=== PATIENT | female | born 1960 | race Caucasian/White ===

== ENCOUNTER → 2016-09-13 | Outpatient (CLI) | payer BC | LOC: MW.CHOBGYN 10:43 | PROVIDERS: ATTEND Nurse Practitioner Women's Health | DX: E89.0 Postprocedural hypothyroidism (principal) | CPT/HCPCS: 36415; 84443 ==

== ENCOUNTER → 2016-10-16 | Outpatient (CLI) | payer BC ==
[2016-10-16 17:29] LABS: CHLORIDE,CL 107 mmol/L (98-110); SODIUM,NA 143 mmol/L (136-146)
== END | disposition home or self-care (01) ==
LOC: MW.CHRC 16:45
PROVIDERS: ATTEND Family Medicine
DX: R19.7 Diarrhea, unspecified (principal)
CPT/HCPCS: 36415; 80053; 85025; 85652; 86140; 86308; 86663; 86664; 86665; 87804

== ENCOUNTER 2019-07-07 10:52 | Day surgery (SDC) | payer BC ==
[~2019-07-07 10:52] MED LIST: Lactated Ringers 1,000 ML IV SCH; Sodium Chloride 0.9% 10 ML SDV IV PRN; Sodium Chloride 0.9% 10 ML Syringe FLUSH PRN; Sodium Chloride 0.9% 2.5 ML Syringe FLUSH PRN
--- NOTE | 2019-07-07 11:43 | PCM.PREANE ---
Preanesthetic Assessment - Anesthesia/Transfusion/Family Hx Anesthesia History: Prior Anesthesia Reaction Family History of Anesthesia Reaction: No Transfusion History: Prior Transfusion Without Reaction - Review of Systems General: No Symptoms Pulmonary: No Symptoms Cardiovascular: No Symptoms Gastrointestinal: No Symptoms Neurological: No Symptoms Other: Reports: None - Physical Assessment NPO Status Date: 07/07/19 NPO Status Time: 09:00 Vital Signs: Last Vital Signs Temp 98.2 F 07/07/19 11:00 Pulse 77 07/07/19 11:00 Resp 18 07/07/19 11:00 BP 117/69 07/07/19 11:00 Pulse Ox 96 07/07/19 11:00 Height: 5 ft 6 in Weight: 89.811 kg ASA Class: 2 Mental Status: Alert & Oriented x3 Airway Class: Mallampati = 2 Dentition: Reports: Normal Dentition ROM/Head Extension: Full Lungs: Clear to Auscultation, Normal Respiratory Effort Cardiovascular: Regular Rate, Regular Rhythm - Allergies Allergies/Adverse Reactions: Allergies Allergy/AdvReac Type Severity Reaction Status Date / Time amoxicillin trihydrate Allergy Nausea and Verified 06/30/19 14:06 [From Augmentin] Vomiting bupropion HCl Allergy Other Verified 06/30/19 14:06 [From Wellbutrin] doxycycline Allergy Nausea and Verified 06/30/19 14:06 Vomiting metformin Allergy Diarrhea Verified 06/30/19 14:06 morphine Allergy Syncope Verified 06/30/19 14:25 potassium clavulanate Allergy Nausea and Verified 06/30/19 14:06 [From Augmentin] Vomiting - Blood Blood Available: No - Anesthesia Plan Pre-Op Medication Ordered: None - Acknowledgements Anesthesia Type Planned: General Anesthesia Pt an Appropriate Candidate for the Planned Anesthesia: Yes Alternatives and Risks of Anesthesia Discussed w Pt/Guardian: Yes Pt/Guardian Understands and Agrees with Anesthesia Plan: Yes Additional Comments: anes prob list: anx/dep, fibromyalgia, gerd, hx MRSA, PLAN: tiva PreAnesthesia Questionnaire HEENT History: Reports: Other (See Below) Other HEENT History: wears glasses, has upper left permanent dental bridge Gastrointestinal History: Reports: Other (See Below) Other Gastrointestinal History: occasional heartburn- takes Gaviscon 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: Musculoskeletal History: Reports: Fibromyalgia, Gout, Neck Pain, Chronic Other Musculoskeletal History: currently has a left frozen shoulder (has been doing Physical Therapy) Neurological History: Reports: Other (See Below) Other Neuro History: cervical degenerative disc disease Psychiatric History: Reports: Anxiety Endocrine/Metabolic History: Reports: Hypothyroidism, Obesity/BMI 30+, Other ( See Below) Other Endocrine/Metabolic History: hx of Radioactive Thyroid ablation, pre- diabetic- last A1C was 6.1 Immunologic History: Reports: Other (See Below) Other Immunologic History: hx of MRSA Dermatologic History: Reports: Other (See Below) Other Dermatologic History: frequent cold sores - Past Surgical History Head Surgeries/Procedures: Reports: None HEENT Surgical History: Reports: Naso-Sinus Surgery Other HEENT Surgeries/Procedures: Septoplasty and FESS GI Surgical History: Reports: Appendectomy, Cholecystectomy, Colonoscopy Female Surgical History: Reports: Breast Reduction, Section, Hysterectomy, Oophorectomy Musculoskeletal Surgical History: Reports: Other (See Below) Other Musculoskeletal Surgeries/Procedures:: right bunionectomy (has screw) - SUBSTANCE USE Recreational Drug Use History: No - HOME MEDS Home Medications: Home Meds ALPRAZolam [Xanax XR] 0.5 mg PO TID PRN 08/19/14 [History] Levothyroxine [Sythroid] 100 mcg PO DAILY 08/19/14 [History] Solifenacin [Vesicare] 5 mg PO DAILY PRN 08/19/14 [History] Citalopram Hydrobromide [Celexa] 20 mg PO DAILY 06/30/19 [History] Estradiol [Tiki] 0.0375 mg TD ASDIRECTED 06/30/19 [History] Levothyroxine Sodium [Levoxyl] 50 mcg PO ASDIRECTED 06/30/19 [History] Progesterone, Micronized [Progesterone] 100 mg PO DAILY 06/30/19 [History] valACYclovir HCl [Valtrex] 500 mg PO BID PRN 06/30/19 [History] - CURRENT (IN HOUSE) MEDS Current Meds: Current Medications Lactated Ringer's (Ringers, Lactated) 1,000 mls @ 125 mls/hr IV ASDIRECTED VIVIANE Last Admin: 07/07/19 11:15 Dose: 125 mls/hr Sodium Chloride (Saline Flush) 10 ml FLUSH ASDIRECTED PRN PRN Reason: Keep Vein Open Sodium Chloride (Saline Flush) 2.5 ml FLUSH ASDIRECTED PRN PRN Reason: Keep Vein Open Sodium Chloride (Saline Flush) 10 ml FLUSH ASDIRECTED PRN PRN Reason: Keep Vein Open Sodium Chloride (Saline Flush) 2.5 ml FLUSH ASDIRECTED PRN PRN Reason: Keep Vein Open Sodium Chloride (Normal Saline) 10 ml IV ASDIRECTED PRN PRN Reason: IV Use
[2019-07-07] MEDS ORDERED: Midazolam 1 MG/ML 2 ML SDV ONE (13:59)
[2019-07-07] MEDS ORDERED: Ondansetron 4 MG/2 ML SDV ONE (13:59)
[2019-07-07] MEDS ORDERED: Propofol 200 MG/20 ML SDV ONE ×2 (13:59→14:36)
[2019-07-07] MEDS ORDERED: fentaNYL 100 MCG/2 ML SDV ONE (13:59)
--- NOTE | 2019-07-07 15:02 | PCM.OPNOTE ---
- General Post-Op/Procedure Note Date of Surgery/Procedure: 07/07/19 Operative Procedure(s): Screening colonoscopy Findings: Normal colonoscopy however patient had a very tortuous sigmoid colon and very redundant transverse colon Pre Op Diagnosis: Screening colonoscopy Post-Op Diagnosis: same Anesthesia Technique: MAC Primary Surgeon: Sravanthi Mosher Condition: Good
--- NOTE | 2019-07-07 15:10 | PCM.POSTAN ---
POST ANESTHESIA ASSESSMENT - MENTAL STATUS Mental Status: Alert, Oriented - VITAL SIGNS Vital Signs: Last Vital Signs Temp 98.2 F 07/07/19 11:00 Pulse 63 07/07/19 15:05 Resp 11 L 07/07/19 15:05 BP 104/62 07/07/19 15:05 Pulse Ox 97 07/07/19 15:05 - RESPIRATORY Respiratory Status: Respiratory Rate WNL, Airway Patent, O2 Saturation Stable - CARDIOVASCULAR CV Status: Pulse Rate WNL, Blood Pressure Stable - GASTROINTESTINAL GI Status: No Symptoms - POST OP HYDRATION Hydration Status: Adequate & Stable
--- NOTE | 2019-07-07 15:11 | PCM48HPAN ---
Post Anesthesia Note - EVALUATION WITHIN 48HRS OF ANESTHETIC Vital Signs in Normal Range: Yes Patient Participated in Evaluation: Yes Respiratory Function Stable: Yes Airway Patent: Yes Cardiovascular Function Stable: Yes Hydration Status Stable: Yes Pain Control Satisfactory: Yes Nausea and Vomiting Control Satisfactory: Yes Mental Status Recovered: Yes Vital Signs: Last Vital Signs Temp 98.2 F 07/07/19 11:00 Pulse 63 07/07/19 15:05 Resp 11 L 07/07/19 15:05 BP 104/62 07/07/19 15:05 Pulse Ox 97 07/07/19 15:05
[2019-07-07 15:40] VITALS: BP 107/57; PULSE 68
--- NOTE | 2019-07-08 19:00 | OR ---
SURGEON: SRAVANTHI MOSHER MD DATE OF PROCEDURE: 07/07/2019 PREOPERATIVE DIAGNOSIS: Screening colonoscopy. POSTOPERATIVE DIAGNOSIS: Screening colonoscopy. PROCEDURE PERFORMED: Screening colonoscopy. PRIMARY SURGEON: Sravanthi Mosher MD. ANESTHESIA: MAC. INSTRUMENT USED: Olympus colonoscope. EXTENT OF EXAM: To the cecum. PREPARATION: Good. LIMITATIONS: None. INDICATIONS FOR EXAMINATION: The patient is a 58-year-old female who presents for screening colonoscopy. The patient and I discussed the procedure; expected perioperative course; and risks including bleeding, infection, or damage to surrounding structures including perforation. The patient verbalized understanding and wishes to proceed. PROCEDURE IN DETAIL: The patient was brought into the endoscopy suite and placed in the left lateral decubitus position. A time-out was completed verifying the patient's name, age, date of , allergies, and procedure to be performed. Monitored anesthesia care was induced and continuous oxygen was provided via nasal cannula throughout the procedure. After adequate sedation was achieved, a digital rectal exam was performed. This exam was within normal limits. A well-lubricated colonoscope was inserted in the rectum and advanced under direct visualization to the level of the cecum. The cecum was identified by both visual and anatomic landmarks. A photograph was taken of the cecal cap; however, I was unable to retroflex the scope within the cecum due to looping of the scope more proximally. The scope was then fully withdrawn while examining the color, texture, anatomy, and integrity of the mucosa from the cecum to the anal canal. The findings were consistent with normal colonic mucosa. The scope was then brought into the rectum and retroflexed to allow visualization of the anal canal opening. This appeared normal and a photograph was taken. The scope was then straightened out and fully withdrawn. The cecum to anus time was 6 minutes. The patient tolerated the procedure well and was transferred to the PACU in stable condition. ENDOSCOPIC DIAGNOSIS: Normal colonoscopy. RECOMMENDATIONS: Follow up in clinic in 10 years. TK / CORTES /[id number]
== END 2019-07-07 15:38 | disposition home or self-care (01) ==
LOC: MW.SDS 10:52
PROVIDERS: ATTEND Surgery
DX: Z12.11 Encounter for screening for malignant neoplasm of colon (principal); K21.9 Gastro-esophageal reflux disease without esophagitis; E89.0 Postprocedural hypothyroidism; M50.30 Other cervical disc degeneration, unspecified cervical region; F32.9 Major depressive disorder, single episode, unspecified; F41.9 Anxiety disorder, unspecified; E66.9 Obesity, unspecified; M47.812 Spondylosis without myelopathy or radiculopathy, cervical region; M19.012 Primary osteoarthritis, left shoulder; Z88.8 Allergy status to other drugs, medicaments and biological substances; Z88.0 Allergy status to penicillin; Z88.5 Allergy status to narcotic agent; Z88.1 Allergy status to other antibiotic agents; Z90.49 Acquired absence of other specified parts of digestive tract; Z68.33 Body mass index [BMI] 33.0-33.9, adult
CPT/HCPCS: 45378; J2250; J2405; J2704; J3010; J7120

== ENCOUNTER 2020-10-06 09:37 | Day surgery (SDC) | payer BC ==
[~2020-10-06 09:37] MED LIST changes: +Lidocaine 2% 5 ML SDV ONE; +Midazolam 1 MG/ML 2 ML SDV ONE; +Propofol 200 MG/20 ML SDV ONE; +fentaNYL 100 MCG/2 ML SDV ONE
--- NOTE | 2020-10-06 11:32 | PCM.PREANE ---
Preanesthetic Assessment - Anesthesia/Transfusion/Family Hx Anesthesia History: Prior Anesthesia Reaction Type of Anesthesia Reaction: Other (see below) Family History of Anesthesia Reaction: No Transfusion History: Prior Transfusion Without Reaction - Review of Systems General: No Symptoms Pulmonary: No Symptoms Cardiovascular: No Symptoms Gastrointestinal: No Symptoms Neurological: No Symptoms Other: Reports: None - Physical Assessment NPO Status Date: 10/06/20 NPO Status Time: 00:05 Vital Signs: Last Vital Signs Temp 98.4 F 10/06/20 10:58 Pulse 67 10/06/20 10:58 Resp 16 10/06/20 10:58 BP 154/74 H 10/06/20 10:58 Pulse Ox 97 10/06/20 10:58 Height: 5 ft 5 in Weight: 199 lb ASA Class: 2 Mental Status: Alert & Oriented x3 Airway Class: Mallampati = 2 Dentition: Reports: Normal Dentition ROM/Head Extension: Full Lungs: Clear to Auscultation, Normal Respiratory Effort Cardiovascular: Regular Rate, Regular Rhythm - Allergies Allergies/Adverse Reactions: Allergies Allergy/AdvReac Type Severity Reaction Status Date / Time amoxicillin trihydrate Allergy Nausea and Verified 10/06/20 11:01 [From Augmentin] Vomiting bupropion HCl Allergy panic Verified 10/06/20 11:01 [From Wellbutrin] attack cefuroxime [From Ceftin] Allergy Stomach Verified 10/06/20 11:01 Upset doxycycline Allergy Nausea and Verified 10/06/20 11:01 Vomiting metformin Allergy Diarrhea Verified 10/06/20 11:01 morphine Allergy Syncope Verified 10/06/20 11:01 potassium clavulanate Allergy Nausea and Verified 10/06/20 11:01 [From Augmentin] Vomiting - Anesthesia Plan Pre-Op Medication Ordered: None - Acknowledgements Anesthesia Type Planned: General Anesthesia Pt an Appropriate Candidate for the Planned Anesthesia: Yes Alternatives and Risks of Anesthesia Discussed w Pt/Guardian: Yes Pt/Guardian Understands and Agrees with Anesthesia Plan: Yes Additional Comments: npo aftr mn hayfever anxiety depression narendra resolved palpitations no mi, cp, chf interstitial cystitis ibs fibromyalgia tob none etoh none par no questions s/p thyroid ablation on rx PreAnesthesia Questionnaire HEENT History: Reports: Other (See Below) Other HEENT History: wears glasses, has upper left permanent dental bridge Cardiovascular History: Reports: None Respiratory History: Reports: None Gastrointestinal History: Reports: Other (See Below) Other Gastrointestinal History: occasional heartburn- takes Gaviscon Genitourinary History: Reports: Other (See Below) Other Genitourinary History: UTI's in the past 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: Musculoskeletal History: Reports: Fibromyalgia, Gout, Neck Pain, Chronic Other Musculoskeletal History: currently has a left frozen shoulder (has been doing Physical Therapy) Neurological History: Reports: Other (See Below) Other Neuro History: cervical degenerative disc disease Psychiatric History: Reports: Anxiety Endocrine/Metabolic History: Reports: Hypothyroidism, Obesity/BMI 30+, Other (See Below) Other Endocrine/Metabolic History: hx of Radioactive Thyroid ablation, pre-diabetic- last A1C was 6.1 Hematologic History: Reports: Blood Transfusion(s) Immunologic History: Reports: Other (See Below) Other Immunologic History: hx of MRSA Oncologic (Cancer) History: Reports: None Dermatologic History: Reports: Other (See Below) Other Dermatologic History: frequent cold sores - Past Surgical History Head Surgeries/Procedures: Reports: None HEENT Surgical History: Reports: Naso-Sinus Surgery Other HEENT Surgeries/Procedures: Septoplasty and FESS Cardiovascular Surgical History: Reports: None Respiratory Surgical History: Reports: None GI Surgical History: Reports: Appendectomy, Cholecystectomy, Colonoscopy Female Surgical History: Reports: Breast Reduction, Section, Hysterectomy, Oophorectomy Endocrine Surgical History: Reports: None Neurological Surgical History: Reports: None Musculoskeletal Surgical History: Reports: Other (See Below) Other Musculoskeletal Surgeries/Procedures:: right bunionectomy (has screw) Oncologic Surgical History: Reports: None Dermatological Surgical History: Reports: None - SUBSTANCE USE Tobacco Use Status *Q: Never Tobacco User - HOME MEDS Home Medications: Home Meds ALPRAZolam [Xanax XR] 0.5 mg PO TID PRN 08/19/14 [History] Levothyroxine [Synthroid] 100 mcg PO ASDIRECTED 08/19/14 [History] Solifenacin [Vesicare] 5 mg PO DAILY PRN 08/19/14 [History] Citalopram Hydrobromide [Celexa] 20 mg PO DAILY 06/30/19 [History] Levothyroxine Sodium [Levoxyl] 50 mcg PO ASDIRECTED 06/30/19 [History] Progesterone, Micronized [Progesterone] 100 mg PO DAILY 06/30/19 [History] estradioL [Tiki] 0.0375 mg TD ASDIRECTED 06/30/19 [History] Acetaminophen [Tylenol Extra Strength] 1 tab PO ASDIRECTED PRN 10/04/20 [History] - CURRENT (IN HOUSE) MEDS Current Meds: Current Medications Lactated Ringer's (Ringers, Lactated) 1,000 mls @ 125 mls/hr IV ASDIRECTED VIVIANE Last Admin: 10/06/20 10:58 Dose: 125 mls/hr Documented by: Sodium Chloride (Sodium Chloride 0.9% 10 Ml Syringe) 10 ml FLUSH ASDIRECTED PRN PRN Reason: Keep Vein Open Sodium Chloride (Sodium Chloride 0.9% 2.5 Ml Syringe) 2.5 ml FLUSH ASDIRECTED PRN PRN Reason: Keep Vein Open Sodium Chloride (Sodium Chloride 0.9% 10 Ml Syringe) 10 ml FLUSH ASDIRECTED PRN PRN Reason: Keep Vein Open Sodium Chloride (Sodium Chloride 0.9% 2.5 Ml Syringe) 2.5 ml FLUSH ASDIRECTED PRN PRN Reason: Keep Vein Open Sodium Chloride (Sodium Chloride 0.9% 10 Ml Sdv) 10 ml IV ASDIRECTED PRN PRN Reason: IV Use Discontinued Medications Fentanyl (Fentanyl 100 Mcg/2 Ml Sdv) Confirm Administered Dose 100 mcg .ROUTE .STK-MED ONE Stop: 10/06/20 09:12 Lidocaine (Lidocaine 2% 5 Ml Sdv) Confirm Administered Dose 5 ml .ROUTE .STK-MED ONE Stop: 10/06/20 09:13 Midazolam HCl (Midazolam 1 Mg/Ml 2 Ml Sdv) Confirm Administered Dose 2 mg .ROUTE .STK-MED ONE Stop: 10/06/20 09:12 Propofol (Propofol 200 Mg/20 Ml Sdv) Confirm Administered Dose 200 mg .ROUTE .STK-MED ONE Stop: 10/06/20 09:12
--- NOTE | 2020-10-06 13:10 | PCM.OPNOTE ---
- General Post-Op/Procedure Note Date of Surgery/Procedure: 10/06/20 Operative Procedure(s): Diagnostic EGD Findings: Normal appearing EGD Pre Op Diagnosis: LUQ abdominal pain Post-Op Diagnosis: same Anesthesia Technique: MAC Primary Surgeon: Sravanthi Mosher Condition: Good
--- NOTE | 2020-10-06 14:33 | PCM.POSTAN ---
POST ANESTHESIA ASSESSMENT - MENTAL STATUS Mental Status: Alert, Oriented - VITAL SIGNS Vital Signs: Last Vital Signs Temp 98.4 F 10/06/20 10:58 Pulse 71 10/06/20 13:18 Resp 13 10/06/20 13:18 BP 123/67 10/06/20 13:18 Pulse Ox 96 10/06/20 13:18 - RESPIRATORY Respiratory Status: Respiratory Rate WNL, Airway Patent, O2 Saturation Stable - CARDIOVASCULAR CV Status: Pulse Rate WNL, Blood Pressure Stable - GASTROINTESTINAL GI Status: No Symptoms - POST OP HYDRATION Hydration Status: Adequate & Stable
--- NOTE | 2020-10-06 14:34 | PCM48HPAN ---
Post Anesthesia Note - EVALUATION WITHIN 48HRS OF ANESTHETIC Vital Signs in Normal Range: Yes Patient Participated in Evaluation: Yes Respiratory Function Stable: Yes Airway Patent: Yes Cardiovascular Function Stable: Yes Hydration Status Stable: Yes Pain Control Satisfactory: Yes Nausea and Vomiting Control Satisfactory: Yes Mental Status Recovered: Yes Vital Signs: Last Vital Signs Temp 98.4 F 10/06/20 10:58 Pulse 71 10/06/20 13:18 Resp 13 10/06/20 13:18 BP 123/67 10/06/20 13:18 Pulse Ox 96 10/06/20 13:18
[2020-10-06 15:14] VITALS: BP 114/61; PULSE 61
--- NOTE | 2020-10-06 20:08 | OR ---
SURGEON: SRAVANTHI MOSHER MD DATE OF PROCEDURE: 10/06/2020 PREOPERATIVE DIAGNOSIS: Left upper quadrant pain. POSTOPERATIVE DIAGNOSIS: Left upper quadrant pain. PROCEDURE PERFORMED: Diagnostic esophagogastroduodenoscopy with biopsy. PRIMARY SURGEON: Sravanthi Mosher MD ANESTHESIA: MAC. INSTRUMENT USED: Olympus endoscope. EXTENT OF EXAM: To the 2nd portion of duodenum. PREPARATION: Good. LIMITATIONS: None. INDICATIONS FOR EXAMINATION: The patient is a 59-year-old female who presents with intermittent left upper quadrant pain. After discussing her symptoms and performing physical exam, the decision was made to proceed with diagnostic EGD. I explained the procedure, expected perioperative course, and the risks. The patient verbalized understanding and wishes to proceed. PROCEDURE IN DETAIL: The patient was brought into the endoscopy suite and placed in a beach chair position. A time-out was completed verifying the patient's name, age, date of , allergies, and procedure to be performed. A bite block was placed in the patient's mouth. Monitored anesthesia care was induced and continuous oxygen was provided via nasal cannula throughout the procedure. After adequate sedation was achieved, a well-lubricated endoscope was placed in the patient's mouth and advanced under direct visualization to the 2nd portion of duodenum. This appeared normal and a photograph was taken. The scope was then fully withdrawn while examining the color, texture, anatomy, and integrity of the mucosa of the upper GI tract. The duodenum appeared normal. The scope was brought into the stomach and photographs were taken of the pylorus and GE junction. Both appeared normal. Biopsies were taken of the gastric antrum, body, and fundus and sent for histologic review and H pylori testing, but I saw no evidence of gross inflammation or ulceration. The scope was then brought into the distal esophagus. A photograph was taken of the Z-line, which appeared normal. A biopsy was taken of the distal esophageal mucosa 1 cm above the Z- line and sent to Pathology. There was no evidence of gross esophagitis or ulceration. The remainder of the esophagus appeared normal. The scope was removed and the procedure was terminated. The patient was taken to PACU in stable condition. ENDOSCOPIC DIAGNOSIS: Left upper quadrant pain. RECOMMENDATIONS: Follow up in clinic in 2 weeks to discuss imaging findings as well as our biopsy results. TK / CORTES /[id number]
== END 2020-10-06 13:54 | disposition home or self-care (01) ==
LOC: MW.SDS 09:37
PROVIDERS: ATTEND Surgery
DX: K29.50 Unspecified chronic gastritis without bleeding (principal); K20.90 Esophagitis, unspecified without bleeding; E03.9 Hypothyroidism, unspecified; E66.9 Obesity, unspecified; Z68.33 Body mass index [BMI] 33.0-33.9, adult; R73.03 Prediabetes; Z88.8 Allergy status to other drugs, medicaments and biological substances; Z88.6 Allergy status to analgesic agent; Z79.890 Hormone replacement therapy; Z79.899 Other long term (current) drug therapy; Z87.440 Personal history of urinary (tract) infections; Z87.39 Personal history of other diseases of the musculoskeletal system and connective tissue; Z98.890 Other specified postprocedural states
CPT/HCPCS: 43239; 88305; 88312; J2250; J2704; J3010; J7120; 00731

== ENCOUNTER 2024-02-21 16:23 | Emergency (ER) | payer MEDICARE, OTHER ==
[2024-02-21] MEDS ORDERED: Sodium Chloride 0.9% 10 ML Syringe FLUSH PRN (16:49)
[2024-02-21] MEDS ORDERED: Sodium Chloride 0.9% 2.5 ML Syringe FLUSH PRN (16:49)
[2024-02-21 17:45] LABS: INR 1.17 (0.86-1.11)
[2024-02-21] MEDS: Iopamidol 755 MG/ML 500 ML Multipack Bottle IVPUSH ONE (19:04)
[2024-02-21 20:05] VITALS: BP 125/87; PULSE 65
[2024-02-27 05:06] LABS: SMOOTH MUSC AB, IGG 96 Units (0-19)
== END 2024-02-21 20:04 | disposition home or self-care (01) ==
LOC: MW.ED 16:23
DX: K74.60 Unspecified cirrhosis of liver (principal); E03.9 Hypothyroidism, unspecified; E66.9 Obesity, unspecified; Z90.49 Acquired absence of other specified parts of digestive tract; Z90.710 Acquired absence of both cervix and uterus; Z79.890 Hormone replacement therapy; Z79.899 Other long term (current) drug therapy; Z88.0 Allergy status to penicillin; Z88.1 Allergy status to other antibiotic agents; Z88.5 Allergy status to narcotic agent; Z88.8 Allergy status to other drugs, medicaments and biological substances; Z75.8 Other problems related to medical facilities and other health care; Z68.30 Body mass index [BMI] 30.0-30.9, adult
CPT/HCPCS: 36415; 74177; 85610; 86015; 99284; Q9967

== ENCOUNTER 2024-04-23 13:59 | Emergency (ER) | payer MEDICARE, OTHER ==
[2024-04-23 14:44] LABS: BASOPHILS ABSOLUTE AUTO 0.04 K/uL (0.00-0.20); BASOPHILS PERCENT AUTO 0.5 % (0.0-1.0); EOSINOPHILS ABSOLUTE AUTO 0.42 K/uL (0.00-0.45); EOSINOPHILS PERCENT AUTO 5.1 % (0.0-6.0); HEMATOCRIT 41.5 % (37.0-47.0); HEMOGLOBIN 13.8 g/dL (12.0-16.0); IMMATURE GRAN ABSOLUTE AUTO 0.02 K/uL (0.00-0.05); IMMATURE GRAN PERCENT AUTO 0.2 % (0.0-0.4); LYMPHOCYTES ABSOLUTE AUTO 1.05 K/uL (1.00-4.80); LYMPHOCYTES PERCENT AUTO 12.7 % (24.0-44.0); MEAN CORPUSCULAR HEMOGLOBIN 31.1 pg (28.0-32.0); MEAN CORPUSCULAR HGB CONC 33.3 g/dL (32.0-36.0); MEAN CORPUSCULAR VOLUME 93.5 fL (83.0-99.0); MEAN PLATELET VOLUME 9.1 fL (9.4-12.3); MONOCYTES ABSOLUTE AUTO 0.69 K/uL (0.00-0.80); MONOCYTES PERCENT AUTO 8.3 % (0.0-8.0); NEUTROPHILS ABSOLUTE AUTO 6.08 K/uL (1.80-7.70); NEUTROPHILS PERCENT AUTO 73.2 % (41.0-71.0); PLATELET COUNT,PLT 180 K/uL (150-400); RED BLOOD CELL COUNT 4.44 M/uL (4.10-5.30)
[2024-04-23 15:14] LABS: A/G RATIO 0.9 (0.9-1.6); ALBUMIN 3.2 g/dL (3.4-5.0); BILIRUBIN TOTAL 0.5 mg/dL (0.2-1.0); CALCIUM 8.8 mg/dL (8.5-10.1); CARBON DIOXIDE,CO2 30.9 mmol/L (21.0-32.0); EST CRCL DRUG DOSING (CG) 50.47 mL/min; POTASSIUM,K 3.7 mmol/L (3.5-5.1); PROTEIN TOTAL,TP 6.6 g/dL (6.4-8.2)
[2024-04-23] MEDS: Alum Hydrox/Mag Hydrox/Simeth 15 ML, Lidocaine 2% 5 ML PO ONE (15:54)
[2024-04-24 13:15] VITALS: BP 126/72; PULSE 74
== END 2024-04-23 16:57 | disposition home or self-care (01) ==
LOC: MW.ED 13:59
DX: K21.9 Gastro-esophageal reflux disease without esophagitis (principal); R07.2 Precordial pain; E03.9 Hypothyroidism, unspecified; E66.9 Obesity, unspecified; Z79.899 Other long term (current) drug therapy; Z88.0 Allergy status to penicillin; Z88.5 Allergy status to narcotic agent; Z88.1 Allergy status to other antibiotic agents; Z88.8 Allergy status to other drugs, medicaments and biological substances; Z75.8 Other problems related to medical facilities and other health care; B17.9 Acute viral hepatitis, unspecified; R79.89 Other specified abnormal findings of blood chemistry
CPT/HCPCS: 36415; 71045; 80053; 80076; 82728; 84484; 85025; 93005; 99285; A9270; 93010; 99283

== ENCOUNTER 2024-04-28 22:00 | Emergency (ER) | payer MEDICARE, OTHER ==
[2024-04-28 23:30] LABS: BASOPHILS ABSOLUTE AUTO 0.06 K/uL (0.00-0.20); BASOPHILS PERCENT AUTO 0.3 % (0.0-1.0); EOSINOPHILS ABSOLUTE AUTO 0.03 K/uL (0.00-0.45); EOSINOPHILS PERCENT AUTO 0.2 % (0.0-6.0); HEMOGLOBIN 15.6 g/dL (12.0-16.0); IMMATURE GRAN ABSOLUTE AUTO 0.09 K/uL (0.00-0.05); IMMATURE GRAN PERCENT AUTO 0.5 % (0.0-0.4); LYMPHOCYTES ABSOLUTE AUTO 0.91 K/uL (1.00-4.80); LYMPHOCYTES PERCENT AUTO 5.2 % (24.0-44.0); MEAN CORPUSCULAR HEMOGLOBIN 30.9 pg (28.0-32.0); MEAN CORPUSCULAR HGB CONC 33.2 g/dL (32.0-36.0); MEAN CORPUSCULAR VOLUME 93.1 fL (83.0-99.0); MEAN PLATELET VOLUME 9.1 fL (9.4-12.3); MONOCYTES ABSOLUTE AUTO 0.78 K/uL (0.00-0.80); MONOCYTES PERCENT AUTO 4.4 % (0.0-8.0); NEUTROPHILS ABSOLUTE AUTO 15.69 K/uL (1.80-7.70); NEUTROPHILS PERCENT AUTO 89.4 % (41.0-71.0); PLATELET COUNT,PLT 234 K/uL (150-400); RED BLOOD CELL COUNT 5.05 M/uL (4.10-5.30); WHITE BLOOD CELL COUNT,WBC 17.56 K/uL (3.9-11.3)
[2024-04-28 23:55] LABS: A/G RATIO 1.1 (0.9-1.6); ALANINE AMINOTRANSFERASE,ALT 19 IU/L (14-63); ALKALINE PHOSPHATASE 136 U/L (46-116); ASPARTATE AMNIOTRANSFERASE,AST 32 IU/L (15-37); BILIRUBIN TOTAL 0.4 mg/dL (0.2-1.0); BLOOD UREA NITROGEN,BUN 23 mg/dL (7.0-18.0); CALCIUM 9.3 mg/dL (8.5-10.1); CARBON DIOXIDE,CO2 24.9 mmol/L (21.0-32.0); CHLORIDE,CL 103 mmol/L (98-107); CREATININE 1.3 mg/dL (0.6-1.0); GLUCOSE RANDOM 168 mg/dL (74-106); LIPASE 87 U/L (16-77); MAGNESIUM 2.1 mg/dL (1.8-2.4); POTASSIUM,K 4.9 mmol/L (3.5-5.1); PROTEIN TOTAL,TP 7.7 g/dL (6.4-8.2); SODIUM,NA 138 mmol/L (136-145)
[2024-04-28 23:58] LABS: ESTIMATED GFR 46 mL/min (>60)
[2024-04-29] MEDS: Sodium Chloride 0.9% 1,000 ML IV ONE
[2024-04-29] MEDS: droPERidol 5 MG/2 ML SDV IVPUSH ONE (00:01)
[2024-04-29] MEDS: Sodium Chloride 0.9% 10 ML Syringe FLUSH PRN (00:01)
[2024-04-29 00:18] LABS: INR 1.1 (0.86-1.11)
[2024-04-29] MEDS: Iopamidol 755 Mg/ML 100 ML Bottle IVPUSH ONE (01:17)
[2024-04-29 05:05] VITALS: BP 129/84; PULSE 88
== END 2024-04-29 03:13 | disposition home or self-care (01) ==
LOC: MW.ED 22:00
DX: A08.4 Viral intestinal infection, unspecified (principal); R74.8 Abnormal levels of other serum enzymes; E03.9 Hypothyroidism, unspecified; E66.9 Obesity, unspecified; Z68.32 Body mass index [BMI] 32.0-32.9, adult; Z79.899 Other long term (current) drug therapy; Z79.890 Hormone replacement therapy; Z88.5 Allergy status to narcotic agent; Z88.8 Allergy status to other drugs, medicaments and biological substances; Z88.1 Allergy status to other antibiotic agents
CPT/HCPCS: 36415; 74177; 80053; 83605; 83690; 83735; 85025; 85610; 93005; 96361; 96374; 99285; J1790; J3490; J7030; Q9967; 93010; 99284